=== PATIENT | female | born 2005 | race Caucasian/White ===

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

== ENCOUNTER 2024-10-31 11:26 | Emergency (ER) | payer MEDICAID ==
[2024-10-31 12:19] LABS: APPEARANCE,URINE CLEAR (CLEAR); BILIRUBIN,URINE NEGATIVE (NEGATIVE); COLOR,URINE YELLOW (YELLOW); GLUCOSE,URINE NEGATIVE (NEGATIVE); KETONES,URINE NEGATIVE (NEGATIVE); LEUKOCYTE ESTERASE,URINE NEGATIVE (NEGATIVE); NITRITE,URINE NEGATIVE (NEGATIVE); OCCULT BLOOD,URINE NEGATIVE (NEGATIVE); PH,URINE 7.5 (5.0-8.0); PROTEIN,URINE 100 mg/dL (NEGATIVE); UROBILINOGEN,URINE 0.2 EU/dL (0.2-1.0)
[2024-10-31 12:27] LABS: AMORPHOUS SEDIMENT,URINE NOT SEEN; BACTERIA,URINE FEW; EPITHELIAL CELLS,URINE FEW; MUCUS,URINE MANY; RBC,URINE 0-5 (0-5); WBC,URINE 0-5 (0-5)
[2024-10-31] MEDS: Sodium Chloride 0.9% 500 ML IV ONE (13:07)
[2024-10-31] MEDS: Calcium Carbonate 500 MG Tab.Chew PO ONE (13:08)
[2024-10-31] MEDS: Metoclopramide 10 MG/2 ML SDV IVPUSH ONE (13:08)
[2024-10-31] MEDS: diphenhydrAMINE 50 MG/ML SDV IVPUSH ONE (13:36)
== END 2024-10-31 14:14 | disposition home or self-care (01) ==
LOC: JP.ED 11:26
DX: O21.9 Vomiting of pregnancy, unspecified (principal); O99.330 Smoking (tobacco) complicating pregnancy, unspecified trimester; Z3A.00 Weeks of gestation of pregnancy not specified; Z86.16 Personal history of COVID-19; Z79.899 Other long term (current) drug therapy
CPT/HCPCS: 81001; 81025; 87428; 96361; 96374; 96375; 99284; A9270; J1200; J2765

== ENCOUNTER 2024-11-11 12:37 | Emergency (ER) | payer MEDICAID ==
[2024-11-11] MEDS ORDERED: Sodium Chloride 0.9% 10 ML Syringe FLUSH PRN (13:26)
[2024-11-11] MEDS: Ondansetron 4 MG/2 ML SDV IVPUSH ONE (13:41)
[2024-11-11] MEDS: Lactated Ringers 1,000 ML IV ONE (13:44)
[2024-11-11 14:08] LABS: CALCIUM 9.2 mg/dL (8.5-10.1); CREATININE 0.6 mg/dL (0.6-1.0); EST CRCL DRUG DOSING (CG) 103.18 mL/min; POTASSIUM,K 3.8 mmol/L (3.6-5.2)
[2024-11-11 14:14] LABS: ANION GAP 15.8 mmol/L (5.0-14.0)
[2024-11-11 14:37] LABS: BASOPHILS ABSOLUTE AUTO 0.04 K/uL (0.00-0.10); BASOPHILS PERCENT AUTO 0.5 % (0.1-1.3); EOSINOPHILS ABSOLUTE AUTO 0.05 K/uL (0.00-0.40); EOSINOPHILS PERCENT AUTO 0.6 % (0.0-5.4); HEMATOCRIT 38.2 % (34.3-46.0); HEMOGLOBIN 13.5 g/dL (11.2-15.5); IMMATURE GRAN ABSOLUTE AUTO 0.04 K/uL (0.00-0.23); IMMATURE GRAN PERCENT AUTO 0.5 % (0.0-0.7); LYMPHOCYTES PERCENT AUTO 15.4 % (11.4-47.7); MEAN CORPUSCULAR HEMOGLOBIN 30.4 pg (31.6-35.5); MEAN CORPUSCULAR HGB CONC 35.3 g/dL (31.6-35.5); MONOCYTES ABSOLUTE AUTO 0.57 K/uL (0.20-0.90); MONOCYTES PERCENT AUTO 6.8 % (3.3-12.6); NEUTROPHILS ABSOLUTE AUTO 6.42 K/uL (1.0-7.6); NEUTROPHILS PERCENT AUTO 76.2 % (40.0-78.1); PLATELET COUNT,PLT 274 K/uL (130-375); RED BLOOD CELL COUNT 4.44 M/uL (3.77-5.24); WHITE BLOOD CELL COUNT,WBC 8.4 K/uL (3.2-11.0)
[2024-11-11 15:13] LABS: APPEARANCE,URINE SLIGHTLY CLOUDY (CLEAR); BILIRUBIN,URINE NEGATIVE (NEGATIVE); COLOR,URINE YELLOW (YELLOW); GLUCOSE,URINE NEGATIVE (NEGATIVE); KETONES,URINE 40 mg/dL (NEGATIVE); LEUKOCYTE ESTERASE,URINE NEGATIVE (NEGATIVE); NITRITE,URINE NEGATIVE (NEGATIVE); OCCULT BLOOD,URINE NEGATIVE (NEGATIVE); PH,URINE 7.5 (5.0-8.0); PROTEIN,URINE 100 mg/dL (NEGATIVE); UROBILINOGEN,URINE 0.2 EU/dL (0.2-1.0)
[2024-11-11 15:18] LABS: RBC,URINE 0-5 (0-5)
[2024-11-11 15:19] LABS: AMORPHOUS SEDIMENT,URINE NOT SEEN; BACTERIA,URINE MODERATE; EPITHELIAL CELLS,URINE MANY; MUCUS,URINE NOT SEEN; WBC,URINE 0-5 (0-5)
== END 2024-11-11 16:19 | disposition home or self-care (01) ==
LOC: JP.ED 12:37
DX: E86.0 Dehydration (principal); R11.2 Nausea with vomiting, unspecified; Z88.8 Allergy status to other drugs, medicaments and biological substances; Z79.899 Other long term (current) drug therapy; Z86.16 Personal history of COVID-19
CPT/HCPCS: 36415; 80048; 81001; 83605; 85025; 96361; 96374; 99283; 99284-25; J2405; J7120

== ENCOUNTER 2024-12-20 21:40 | Emergency (ER) | payer MEDICAID ==
[2024-12-20 22:10] LABS: BASOPHILS ABSOLUTE AUTO 0.05 K/uL (0.00-0.10); BASOPHILS PERCENT AUTO 0.5 % (0.1-1.3); EOSINOPHILS ABSOLUTE AUTO 0.03 K/uL (0.00-0.40); EOSINOPHILS PERCENT AUTO 0.3 % (0.0-5.4); HEMATOCRIT 37.1 % (34.3-46.0); HEMOGLOBIN 13.3 g/dL (11.2-15.5); IMMATURE GRAN ABSOLUTE AUTO 0.07 K/uL (0.00-0.23); IMMATURE GRAN PERCENT AUTO 0.7 % (0.0-0.7); LYMPHOCYTES ABSOLUTE AUTO 1.11 K/uL (0.8-3.3); LYMPHOCYTES PERCENT AUTO 11.1 % (11.4-47.7); MEAN CORPUSCULAR HGB CONC 35.8 g/dL (31.6-35.5); MEAN CORPUSCULAR VOLUME 86.5 fL (81.4-99.0); MONOCYTES ABSOLUTE AUTO 0.62 K/uL (0.20-0.90); MONOCYTES PERCENT AUTO 6.2 % (3.3-12.6); NEUTROPHILS ABSOLUTE AUTO 8.09 K/uL (1.0-7.6); NEUTROPHILS PERCENT AUTO 81.2 % (40.0-78.1); PLATELET COUNT,PLT 271 K/uL (130-375); RED BLOOD CELL COUNT 4.29 M/uL (3.77-5.24)
[2024-12-20] MEDS: diphenhydrAMINE 50 MG/ML SDV IVPUSH ONE (22:11)
[2024-12-20] MEDS: Ondansetron 4 MG/2 ML SDV IVPUSH ONE (22:11)
[2024-12-20] MEDS: Sodium Chloride 0.9% 10 ML Syringe FLUSH PRN (22:11)
[2024-12-20] MEDS: Sodium Chloride 0.9% 1,000 ML IV SCH (22:11)
[2024-12-20 22:30] LABS: A/G RATIO 1.1 (1.2-2.2); ALANINE AMINOTRANSFERASE,ALT 24 U/L (12-78); ALBUMIN 3.9 g/dL (3.4-5.0); ALKALINE PHOSPHATASE 48 U/L (46-116); ASPARTATE AMNIOTRANSFERASE,AST 16 U/L (15-37); BILIRUBIN TOTAL 0.5 mg/dL (0.2-1.0); BLOOD UREA NITROGEN,BUN 11 mg/dL (7-18); CALCIUM 9.5 mg/dL (8.5-10.1); CARBON DIOXIDE,CO2 23 mmol/L (21-32); CHLORIDE,CL 101 mmol/L (100-108); CREATININE 0.7 mg/dL (0.6-1.0); EST CRCL DRUG DOSING (CG) 91.07 mL/min; ESTIMATED GFR 127 mL/min (>60); GLUCOSE RANDOM 108 mg/dL (74-106); POTASSIUM,K 3.4 mmol/L (3.6-5.2); PROTEIN TOTAL,TP 7.3 g/dL (6.4-8.2); SODIUM,NA 139 mmol/L (140-148)
[2024-12-20 22:31] LABS: ANION GAP 18.4 mmol/L (5.0-14.0)
[2024-12-20 23:04] LABS: APPEARANCE,URINE SLIGHTLY CLOUDY (CLEAR); BILIRUBIN,URINE SMALL (NEGATIVE); COLOR,URINE YELLOW (YELLOW); GLUCOSE,URINE NEGATIVE (NEGATIVE); KETONES,URINE 40 mg/dL (NEGATIVE); LEUKOCYTE ESTERASE,URINE NEGATIVE (NEGATIVE); NITRITE,URINE NEGATIVE (NEGATIVE); OCCULT BLOOD,URINE NEGATIVE (NEGATIVE); PROTEIN,URINE >=300 mg/dL (NEGATIVE); UROBILINOGEN,URINE 0.2 EU/dL (0.2-1.0)
[2024-12-20 23:10] LABS: AMORPHOUS SEDIMENT,URINE RARE; BACTERIA,URINE MANY; EPITHELIAL CELLS,URINE FEW; MUCUS,URINE FEW; RBC,URINE 0-5 (0-5)
== END 2024-12-20 23:36 | disposition home or self-care (01) ==
LOC: JP.ED 21:40
DX: O20.9 Hemorrhage in early pregnancy, unspecified (principal); Z3A.12 12 weeks gestation of pregnancy
CPT/HCPCS: 36415; 80053; 81001; 85025; 96361; 96374; 96375; 99284; J1200; J2405; J7030

== ENCOUNTER 2025-04-06 21:00 | Emergency (ER) | payer MEDICAID | END 2025-04-06 23:00 | disposition home or self-care (01) | LOC: JP.ED 21:00 | DX: O9A.212 Injury, poisoning and certain other consequences of external causes complicating pregnancy, second trimester (principal); S30.1XXA Contusion of abdominal wall, initial encounter; Z86.16 Personal history of COVID-19; Z87.891 Personal history of nicotine dependence; Z3A.27 27 weeks gestation of pregnancy; Z88.8 Allergy status to other drugs, medicaments and biological substances; W50.0XXA Accidental hit or strike by another person, initial encounter | CPT/HCPCS: 99283 ==

== ENCOUNTER 2025-05-14 18:57 | Emergency (ER) | payer MEDICAID ==
[2025-05-14 19:41] LABS: APPEARANCE,URINE SLIGHTLY CLOUDY (CLEAR); GLUCOSE,URINE NEGATIVE (NEGATIVE); OCCULT BLOOD,URINE NEGATIVE (NEGATIVE)
== END 2025-05-14 20:26 | disposition home or self-care (01) ==
LOC: JP.ED 18:57
DX: O99.891 Other specified diseases and conditions complicating pregnancy (principal); R31.9 Hematuria, unspecified; Z3A.33 33 weeks gestation of pregnancy; F17.200 Nicotine dependence, unspecified, uncomplicated; Z88.8 Allergy status to other drugs, medicaments and biological substances; Z79.899 Other long term (current) drug therapy; Z86.16 Personal history of COVID-19
CPT/HCPCS: 81003; 99284